=== PATIENT | female | born 1985 | race African-American/Black ===

== ENCOUNTER 2019-09-30 13:58 | Emergency (ER) | payer MEDICAID, OTHER ==
[~2019-09-30] VITALS: Ht 160 cm; Wt 61.4 kg
[2019-09-30] MEDS ORDERED: ALBUTEROL (0.083%) 2.5MG/3ML NEB HHN STA (14:52)
[2019-09-30] MEDS ORDERED: PREDNISONE 20MG TABLET PO STA (14:52)
[2019-09-30] MEDS ORDERED: IPRATROPIUM BROMIDE (0.02%) 0.5MG/2.5ML NEB HHN STA (14:52)
[2019-09-30 16:19] VITALS: BP 120/78
== END 2019-09-30 16:20 | disposition home or self-care (01) ==
LOC: ER 13:58
DX: J40 Bronchitis, not specified as acute or chronic (principal); R06.2 Wheezing
CPT/HCPCS: 71045; 81025; 99283; J7512; J7611